=== PATIENT | male | born 1945 | race Caucasian/White ===

== ENCOUNTER 2021-04-23 13:14 | Emergency (ER) | payer MEDICARE, OTHER ==
[~2021-04-23] VITALS: Ht 185.4 cm; Wt 122.7 kg
[2021-04-23 13:16] VITALS: TEMP 98.7
[2021-04-23 14:02] LABS: ALBUMIN 4.3 gm/dL (3.4-4.8); BILIRUBIN,TOTAL 0.8 mg/dL (0.2-1.2); CALCIUM 9.8 mg/dL (8.4-10.2); CREATININE, serum 1.07 mg/dL (0.72-1.25); POTASSIUM 4.2 mmol/L (3.5-4.5); TOTAL PROTEIN 8.1 gm/dL (6.2-8.1)
[2021-04-23 14:57] LABS: BASO # 0.1 K/mm3 (0.0-0.2); BASO % 0.5 % (0.0-2.0); EOS # 0.3 K/mm3 (0.0-0.7); EOS % 2.5 % (0.0-4.0); GRAN # 7.1 K/mm3 (1.4-6.5); GRAN % 68.8 % (42.2-75.2); HEMATOCRIT 46.3 % (42.0-52.0); HEMOGLOBIN 15.4 g/dl (13.5-18.0); LYMPH # 2.2 K/mm3 (1.2-3.4); LYMPH % 21.2 % (20.0-51.0); MEAN CELL VOLUME 88 fl (80.0-100.0); MEAN CORPUSCULAR HEMOGLOBIN 29 pg (27-31); MEAN CORPUSCULAR HGB CONC 33 g/dl (33.0-37.0); MEAN PLATELET VOLUME 10.2 fl (7.4-10.4); MONO # 0.7 K/mm3 (0.1-0.6); MONO % 6.7 % (1.7-9.3); PLATELET COUNT 216 K/mm3 (130-400); RED BLOOD COUNT 5.28 M/mm3 (4.20-5.60); REDCELL DISTRIBUTION WIDTH-CV 13.1 % (11.5-14.5)
[2021-04-23] MEDS ORDERED: PLAVIX 75MG TAB75 MG PO ×2 (15:07)
[2021-04-23 15:11] VITALS: BP 149/89; PULSE 64
== END 2021-04-23 15:33 | disposition home or self-care (01) ==
LOC: COL.ER 13:14
PROVIDERS: Student in an Organized Health Care Education/Training Program
DX: G45.9 Transient cerebral ischemic attack, unspecified (principal); Z87.891 Personal history of nicotine dependence; Z79.82 Long term (current) use of aspirin

== ENCOUNTER 2021-04-26 06:01 | Inpatient (IN) | payer MEDICARE, OTHER ==
[~2021-04-26] VITALS: Ht 185.4 cm; Wt 122.7 kg
[~2021-04-26 06:01] MED LIST: PLAVIX 75MG TAB75 MG PO
[2021-04-26 06:54] LABS: BASO % 0.4 % (0.0-2.0); EOS # 0.3 K/mm3 (0.0-0.7); GRAN # 7.4 K/mm3 (1.4-6.5); HEMATOCRIT 45.8 % (42.0-52.0); HEMOGLOBIN 15.3 g/dl (13.5-18.0); LYMPH # 2.2 K/mm3 (1.2-3.4); MEAN CELL VOLUME 88 fl (80.0-100.0); MEAN CORPUSCULAR HEMOGLOBIN 29 pg (27-31); MEAN CORPUSCULAR HGB CONC 33 g/dl (33.0-37.0); MEAN PLATELET VOLUME 10.7 fl (7.4-10.4); MONO # 0.9 K/mm3 (0.1-0.6); MONO % 8.1 % (1.7-9.3); PLATELET COUNT 209 K/mm3 (130-400); RED BLOOD COUNT 5.22 M/mm3 (4.20-5.60); REDCELL DISTRIBUTION WIDTH-CV 13.1 % (11.5-14.5)
[2021-04-26 06:56] LABS: INR 1.1 (0.8-3.0); PROTHROMBIN TIME 11.9 SECONDS (9.7-12.8)
[2021-04-26 06:58] LABS: PARTIAL THROMBOPLASTIN TIME 37.9 SECONDS (26.0-37.0)
[2021-04-26 07:01] LABS: ALBUMIN 4.1 gm/dL (3.4-4.8); BILIRUBIN,TOTAL 0.9 mg/dL (0.2-1.2); CALCIUM 10.1 mg/dL (8.4-10.2); CREATININE, serum 0.95 mg/dL (0.72-1.25); POTASSIUM 3.4 mmol/L (3.5-4.5); TOTAL PROTEIN 7.5 gm/dL (6.2-8.1)
[2021-04-26 07:07] LABS: TROPONIN-I 0.01 ng/mL (0.00-0.033)
[2021-04-26] MEDS ORDERED: PLENDIL10 MG PO (10:58)
[2021-04-26] MEDS ORDERED: LOPRESSOR 550 MG/TAB PO (11:00)
[2021-04-26] MEDS ORDERED: PRILOSEC 20MG20 MG PO (11:01)
[2021-04-26] MEDS ORDERED: ASPIRIN 81M81 MG/TA2 PO (11:02)
[2021-04-26] MEDS ORDERED: HCTZ 25MG TAB25 MG PO (11:02)
[2021-04-26] MEDS ORDERED: GLUCOPHAGE500 MG/TAB PO (11:04)
[2021-04-26] MEDS ORDERED: ZOCOR 20MG20 MG PO (11:22)
[2021-04-26] MEDS ORDERED: HYTRIN 5MG C5 MG/CAP PO (11:23)
[2021-04-26] MEDS ORDERED: COZAAR100 MG PO (11:24)
[2021-04-26] MEDS ORDERED: NITROSTAT0.4 MG/TAB SL (11:28)
[2021-04-26] MEDS ORDERED: JARDIANCE25 PO (11:29)
[2021-04-26 11:41] VITALS: BP 154/87; PULSE 69; TEMP 97.9
[2021-04-26 16:48] VITALS: BP 161/89; PULSE 77; TEMP 97.9
--- NOTE | 2021-04-26 17:08 | NUR ---
PT PLEASANT, AOX4, R ADMIN DIR STRONG BUT SLIGHTLY WEAKER THAN LEFT. R HAND HAVING SOME ISSUES WITH MOVEMENT BUT BUE EQUAL IN PUSH/PULL STRENGTH. R FOOT FEELS NUMB TO PT BUT CAN FEEL SENSATION DURING ASSESSEMENT, BLE EQUALLY STRONG WITH PUSH/PULL. ASSESSMENT COMPLETED, MED REC COMPLETED, WATER AT BEDSIDE, ORDERED DINNER PER PT REQUEST, NO OTHER NEEDS.
--- NOTE | 2021-04-26 17:15 | NUR ---
NO ADVERSE EVENTS DURING THE SHIFT. PT PLEASANT AND RESTING IN BED. AXOX4. NO PAIN REPORTED. NO CONCERNS AT THIS TIME.
[2021-04-26 20:16] VITALS: BP 157/84; PULSE 78; TEMP 98.3
--- NOTE | 2021-04-26 20:30 | NUR ---
Initial shift assessment done- denies pain, VSS, right hand grasp weaker than left, states right hand feels slightly numb, hard to open and close right hand- right foot very slightly weak but patient able to walk without problems. understands to call for assistance to bathroom
[2021-04-26 23:39] VITALS: BP 150/80; PULSE 65; TEMP 97.6
[2021-04-27] VITALS (9 sets, daily range): BP systolic 145–183; BP diastolic 54–86; PULSE 58–84; TEMP 97.8–98.4
--- NOTE | 2021-04-27 05:36 | NUR ---
Quiet night- no requests, no changes on neuros, Tele on- SR
[2021-04-27 06:32] LABS: BASO # 0.1 K/mm3 (0.0-0.2); BASO % 0.5 % (0.0-2.0); EOS # 0.3 K/mm3 (0.0-0.7); EOS % 3.4 % (0.0-4.0); GRAN % 62.6 % (42.2-75.2); HEMOGLOBIN 13.7 g/dl (13.5-18.0); LYMPH # 2.3 K/mm3 (1.2-3.4); LYMPH % 24.1 % (20.0-51.0); MEAN CELL VOLUME 89 fl (80.0-100.0); MEAN CORPUSCULAR HEMOGLOBIN 29 pg (27-31); MEAN CORPUSCULAR HGB CONC 33 g/dl (33.0-37.0); MEAN PLATELET VOLUME 10.5 fl (7.4-10.4); MONO # 0.9 K/mm3 (0.1-0.6); MONO % 9.1 % (1.7-9.3); PLATELET COUNT 202 K/mm3 (130-400); REDCELL DISTRIBUTION WIDTH-CV 13.3 % (11.5-14.5)
[2021-04-27 06:50] LABS: ALBUMIN 3.4 gm/dL (3.4-4.8); CALCIUM 9.2 mg/dL (8.4-10.2); CHOLESTEROL RISK RATIO 4.6; CREATININE, serum 0.88 mg/dL (0.72-1.25); PHOSPHOROUS 3.6 mg/dL (2.3-4.7); POTASSIUM 3.5 mmol/L (3.5-4.5)
--- NOTE | 2021-04-27 09:39 | NUR ---
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
--- NOTE | 2021-04-27 10:36 | NUR ---
PT. UP AMBULATING HALLS WITH P.T.INDEPENDENTLY. PT. HAS STEADY GAIT. VOICES NO ACUTE CONCERNS
--- NOTE | 2021-04-27 10:40 | NUR ---
PT RESTING IN BED NEURO CHECK COMPLETED, TELEMETRY IS ON. PT IS ABLE TO LIFT AND HOLD EXTREMETIES. INT LEFT HAND INTACT, NO REDNESS/NO EDEMA. DENIES C/O PAIN.
--- NOTE | 2021-04-27 14:52 | NUR ---
health outreach worker met with patient to discuss discharge plan. Patient currently lives at home with his son Wesley ([phone]) and a grandson. 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 Patient is independent with his ADL's and does not utilize any DME to assist with mobility. Patient has no oxygen needs at home. PCP is Dr. Rice and he utilizes [facility] for prison medications and [facility] for short term medications. Patient reports he has a DPOA-HC established and that his son Segun ([phone]) is his agent. Discussed with the patient that PT is recommending the patient go home with outpatient PT. Patient verbalizes that he would therapy established at [facility] Discharge plan: Home with OP PT through [facility]
--- NOTE | 2021-04-27 20:30 | NUR ---
Initial shift assessment done- denies pain/SOB, no changes to neuro,s, states right hand remains slightly numb , good hand grasp but difficulty opening and closing right hand- Up to bathroom, steady on feet. Tele on SR 60,s. SCD,s ordered on patient- pt states he does not want them- refused at this time.
[2021-04-28 03:37] VITALS: BP 150/76; PULSE 64; TEMP 97.8
[2021-04-28 06:45] LABS: BASO # 0.1 K/mm3 (0.0-0.2); BASO % 0.3 % (0.0-2.0); EOS # 0.4 K/mm3 (0.0-0.7); EOS % 2.5 % (0.0-4.0); HEMATOCRIT 43.2 % (42.0-52.0); HEMOGLOBIN 14.2 g/dl (13.5-18.0); LYMPH # 1.8 K/mm3 (1.2-3.4); LYMPH % 12.4 % (20.0-51.0); MEAN CELL VOLUME 89 fl (80.0-100.0); MEAN CORPUSCULAR HEMOGLOBIN 29 pg (27-31); MEAN CORPUSCULAR HGB CONC 33 g/dl (33.0-37.0); MEAN PLATELET VOLUME 10.5 fl (7.4-10.4); MONO # 1.2 K/mm3 (0.1-0.6); MONO % 8.5 % (1.7-9.3); PLATELET COUNT 204 K/mm3 (130-400); RED BLOOD COUNT 4.85 M/mm3 (4.20-5.60); REDCELL DISTRIBUTION WIDTH-CV 13.1 % (11.5-14.5)
--- NOTE | 2021-04-28 06:52 | NUR ---
Quiet night- no changes in neuros, Tele on SR 60,s UP to bathroom, steady on feet, VSS,
[2021-04-28 06:57] LABS: ALBUMIN 3.7 gm/dL (3.4-4.8); CALCIUM 9.3 mg/dL (8.4-10.2); CREATININE, serum 0.97 mg/dL (0.72-1.25); PHOSPHOROUS 3.4 mg/dL (2.3-4.7); POTASSIUM 3.9 mmol/L (3.5-4.5)
[2021-04-28 07:53] VITALS: BP 170/79; PULSE 69; TEMP 98
--- NOTE | 2021-04-28 08:00 | NUR ---
PATIENT IS A&O. VSS ON TELE. B/P WAS INITIALLY ELEVATED THIS AM IN THE 170'S SYSTOLIC BUT AFTER AM B/P MEDS WENT DOWN TO 140'S, PATIENT REPORTS THIS IS NORMAL FOR HIM. NO C/O PAIN, N/V, DIZZINESS OR WEAKNESS. PATIENT ONLY REPORTS STILL HAVIN SOME MILD NUMBNESS IN HIS RIGHT HAND. 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 PT/OT/ST ALL CONSULTED. PATIENT HOPING TO DISCHARGE HOME TODAY. HEAD TO TOE ASSESSMENT COMPLETE. AM MEDS GIVEN. BREAKFAST TRAY AT BEDSIDE. AM BS WAS 141, NO SSI REQUIRED. STUDENT NURSE WORKING WITH PATIENT TODAY, SEE CHARTING. NO OTHER NEEDS AT THIS TIME. CALL LIGHT IN REACH.
[2021-04-28 09:07] VITALS: BP 149/79; PULSE 83
--- NOTE | 2021-04-28 09:43 | NUR ---
Initial visit; Patient thanked Leadite Worker for offering God's blessings and keeping him in Lead[employer] Worker's prayers.
--- NOTE | 2021-04-28 09:52 | NUR ---
Pt. in bed. Assessment completed. Neuro check completed, within normal limits. Both hands equal skein bander and lifts extremities. Telemetry on, HR regular. INT on left hand, no redness. Denies c/o pain. B/P 170/ - primary nurse notified. 0845 - Reassessed B/P - 149 - P -83. Primary nurse updated. Pt resting in bed.
[2021-04-28] MEDS ORDERED: PLAVIX 75MG TAB75 MG PO (10:04)
--- NOTE | 2021-04-28 10:59 | NUR ---
Patient's discharge orders faxed to to [facility] outpatient orders to the E side clinic per patients request. Notified patient that the therapy team will call him to schedule a time.
[2021-04-28 11:28] VITALS: BP 146/67; PULSE 77; TEMP 98.1
--- NOTE | 2021-04-28 13:50 | NUR ---
PATIENT DISCHARGING HOME. GAVE DISCHARGE INSTRUCTIONS AND DISCUSSED ALL OF HIS F/U APTS INCLUDING THE SLEEP STUDY. ANSWERED QUESTIONS/CONCERNS. DC'D TELE. DC'D LEFT WRIST IV AND COVERED SITE WITH [employer]. PATIENT CALLED SON AND IS GETTING DRESSED. PATIENT WILL CALL WHEN HIS SON IS HERE TO GET HIM.
--- NOTE | 2021-04-28 14:40 | NUR ---
PATIENT'S SON IS HERE IN THE ER. PATIENT DRESSED, PACKED AND ESCORTED OUT VIA WC TO PERSONAL VEHICLE WHERE SON IS WAITING.
== END 2021-04-28 14:40 | disposition home or self-care (01) | DRG 66 ==
LOC: COL.ER 06:01 → MEDICAL 08:58
PROVIDERS: Emergency Medicine; ADMIT Internal Medicine
DX: I63.132 Cerebral infarction due to embolism of left carotid artery (principal); E11.9 Type 2 diabetes mellitus without complications; I10 Essential (primary) hypertension; E78.00 Pure hypercholesterolemia, unspecified; K21.9 Gastro-esophageal reflux disease without esophagitis; M48.02 Spinal stenosis, cervical region; I25.10 Atherosclerotic heart disease of native coronary artery without angina pectoris; E87.6 Hypokalemia; I25.2 Old myocardial infarction; Z95.5 Presence of coronary angioplasty implant and graft; Z85.46 Personal history of malignant neoplasm of prostate; Z87.891 Personal history of nicotine dependence; Z23 Encounter for immunization; Z79.82 Long term (current) use of aspirin
CPT/HCPCS: 99223-AI; 99232-AI; 99239; A9575; J1815; Q9967

== ENCOUNTER → 2021-05-27 | Outpatient (RCR) | payer MEDICARE, OTHER ==
[~2021-05-27] MED LIST changes: +ASPIRIN 81M81 MG/TA2 PO; +COZAAR100 MG PO; +GLUCOPHAGE500 MG/TAB PO; +HCTZ 25MG TAB25 MG PO; +HYTRIN 5MG C5 MG/CAP PO; +JARDIANCE25 PO; +LOPRESSOR 550 MG/TAB PO; +NITROSTAT0.4 MG/TAB SL; +PLENDIL10 MG PO; +PRILOSEC 20MG20 MG PO; +ZOCOR 20MG20 MG PO
== END | disposition home or self-care (01) ==
LOC: MKS.ESL.OT
DX: I69.351 Hemiplegia and hemiparesis following cerebral infarction affecting right dominant side (principal)

== ENCOUNTER 2021-06-11 13:00 | Outpatient (RCR) | payer MEDICARE, OTHER | END 2021-06-26 | disposition home or self-care (01) | LOC: MKS.ESL.OT | DX: I69.351 Hemiplegia and hemiparesis following cerebral infarction affecting right dominant side (principal) ==

== ENCOUNTER 2022-02-25 09:31 | Day surgery (SDC) | payer MEDICARE, OTHER ==
[~2022-02-25] VITALS: Ht 182.9 cm; Wt 110.9 kg
[~2022-02-25 09:31] MED LIST changes: +LASIX 40MG TABL40 MG PO; +NORCO 325 MG-51 TAB PO; +PROSCAR 5MG5 MG PO; +TRULICITY0.75 MG/0. SQ
[2022-02-25 10:31] VITALS: BP 126/81; PULSE 84; TEMP 97
--- NOTE | 2022-02-25 11:18 | NUR ---
1000 - Medications, HX and allergies reviewed w/ PT. PT states taking Plavix, Metoprolol and Metforming T at 0700: this was reported to SANTIAG[facility] Jolly and , no new orders recieved.
--- NOTE | 2022-02-25 12:25 | NUR ---
1132 RECEIVED POST PROCEDURE REPORT FROM NELY Keyes. PT ALERT AND ORIENTED, FOLLOWING COMMANDS, ABLE TO AMBULATE FROM CART TO RECLINER. BREATHING EVEN AND UNLABORED. 1140 MUFFIN AND JUICE PROVIDED TO PT 1200 CALLED PT'S SON, ANTOINE TO COME AND GET PT. 1203 IV DISCINTINUED AND REMOVED. DISCHARGE INSTRUCTIONS REVIEWED W/ PT AND SIGNED BY PT. PT AMBULATORY TO RESTROOM TO EMPTY HIS [place] LEG BAG. GAIT STEADY. 1215 PT TO LOBBY VIA WHEEL CHAIR FOR RIDE HOME W/ SON, ANTOINE IN POV.
[2022-02-25 13:13] VITALS: BP 103/66; PULSE 91
[2022-03-04] MEDS ORDERED: CEPHALEXIN500 M1 PO ×3 (12:43→13:32)
[2022-05-23] MEDS ORDERED: XARELTO20 MG PO ×2 (15:05)
[2022-05-23] MEDS ORDERED: CEPHALEXIN500 M1 PO (15:05)
== END 2022-02-25 13:54 | disposition home or self-care (01) ==
LOC: SDCO 09:31
DX: K21.00 Gastro-esophageal reflux disease with esophagitis, without bleeding (principal); K29.30 Chronic superficial gastritis without bleeding
CPT/HCPCS: J2704; J7120

== ENCOUNTER 2022-05-23 22:32 | Inpatient (IN) | payer MEDICARE, OTHER ==
[~2022-05-23] VITALS: Ht 182.9 cm; Wt 113.3 kg
[~2022-05-23 22:32] MED LIST changes: +CEPHALEXIN500 M1 PO; +XARELTO20 MG PO
[2022-05-23 22:57] LABS: BASO % 0.2 % (0.0-2.0); EOS % 0.1 % (0.0-4.0); GRAN # 7.5 K/mm3 (1.4-6.5); GRAN % 81.8 % (42.2-75.2); HEMATOCRIT 41.2 % (42.0-52.0); LYMPH # 0.7 K/mm3 (1.2-3.4); LYMPH % 7.1 % (20.0-51.0); MEAN CELL VOLUME 89 fl (80.0-100.0); MEAN CORPUSCULAR HEMOGLOBIN 28 pg (27-31); MEAN CORPUSCULAR HGB CONC 32 g/dl (33.0-37.0); MEAN PLATELET VOLUME 10.5 fl (7.4-10.4); MONO % 10.6 % (1.7-9.3); PLATELET COUNT 167 K/mm3 (130-400); RED BLOOD COUNT 4.63 M/mm3 (4.20-5.60); REDCELL DISTRIBUTION WIDTH-CV 14.6 % (11.5-14.5)
[2022-05-23 23:08] LABS: ALBUMIN 3.2 gm/dL (3.4-4.8); BILIRUBIN,TOTAL 1.4 mg/dL (0.2-1.2); C-REACTIVE PROTEIN 8.32 mg/dL (0.00-0.50); CALCIUM 8.9 mg/dL (8.4-10.2); CREATININE, serum 0.95 mg/dL (0.72-1.25); POTASSIUM 3.7 mmol/L (3.5-4.5); TOTAL PROTEIN 6.4 gm/dL (6.2-8.1)
[2022-05-23 23:16] LABS: TROPONIN-I 0.043 ng/mL (0.00-0.033)
[2022-05-24 03:30] VITALS: BP 154/62; PULSE 92; TEMP 100
[2022-05-24 05:00] LABS: BASO % 0.2 % (0.0-2.0); GRAN # 6.5 K/mm3 (1.4-6.5); GRAN % 78.1 % (42.2-75.2); HEMOGLOBIN 12.1 g/dl (13.5-18.0); LYMPH # 0.8 K/mm3 (1.2-3.4); LYMPH % 9.4 % (20.0-51.0); MEAN CELL VOLUME 87 fl (80.0-100.0); MEAN CORPUSCULAR HEMOGLOBIN 29 pg (27-31); MEAN CORPUSCULAR HGB CONC 33 g/dl (33.0-37.0); MEAN PLATELET VOLUME 10.6 fl (7.4-10.4); MONO % 12.1 % (1.7-9.3); PLATELET COUNT 155 K/mm3 (130-400); RED BLOOD COUNT 4.21 M/mm3 (4.20-5.60); REDCELL DISTRIBUTION WIDTH-CV 14.6 % (11.5-14.5)
[2022-05-24 05:01] LABS: HEMATOCRIT 36.4 % (42.0-52.0)
[2022-05-24 05:14] LABS: CALCIUM 8.3 mg/dL (8.4-10.2); CREATININE, serum 0.79 mg/dL (0.72-1.25); POTASSIUM 3.4 mmol/L (3.5-4.5)
[2022-05-24 05:23] LABS: TROPONIN-I 6 HR POST INITIAL 0.044 ng/mL (0.00-0.033)
[2022-05-24 08:00] VITALS: BP 167/82; PULSE 86; TEMP 99.8
--- NOTE | 2022-05-24 08:58 | NUR ---
The patient is positive for COVID. JACINTO contacted the patient's son, Segun Long (ph#[phone]), to discuss discharge plan. The patient lives in [place] with his other son, Wesley (ph#[phone]). Segun reports that the patient is independent with ADLs and does not have any DME. The patient's PCP is Dr. Felix Rice. Segun [facility] The patient does not have a DPOA-HC in EMR. Segun reports that he believes the patient has one completed and that it designates him. He states that the patient is and has seven children: himself, Wesley, Sahsha, Shahana, Deni, Brittney, and Carley. JACINTO attempted to contact Dr. Rice's clinic to inquire if they have a DPOA-HC on file. The photo mask cleaner reports that they do not have one on file. Segun reports that the plan is for the patient to return back home with his brother upon discharge. PT/OT have been ordered. *Discharge plan: Tentatively home with son. PT/OT have been ordered*
--- NOTE | 2022-05-24 09:11 | NUR ---
Patient is resting in bed, states he feels really tiered since he did not sleep at night. Alert and oriented x 4, denies any pain or SOB at this time. VSS but HTN. Assessment completed, no further needs at this time. Call light withinr reach.
--- NOTE | 2022-05-24 09:30 | NUR ---
Call placed to Dr Walls for consult. Phone not answered. Message left in voicemail.
[2022-05-24 11:11] VITALS: BP 155/76; PULSE 82; TEMP 100
[2022-05-24] MEDS ORDERED: ELIQUIS 5MG PO (14:05)
[2022-05-24] MEDS ORDERED: ASPIRIN 81M81 MG/TA2 PO (14:27)
[2022-05-24] MEDS ORDERED: CELEBREX 200MG200 MG PO (14:29)
[2022-05-24] MEDS ORDERED: PLENDIL10 MG PO (14:30)
[2022-05-24] MEDS ORDERED: HCTZ 25MG TAB25 MG PO (14:32)
[2022-05-24] MEDS ORDERED: PROTONIX 40MG T40 MG PO (14:34)
[2022-05-24 16:00] VITALS: BP 150/77; BP 152/78; BP 153/95; PULSE 90; TEMP 98
[2022-05-24 18:26] VITALS: BP 167/82; PULSE 86
[2022-05-24 19:06] LABS: COLLECTION METHOD IN
[2022-05-24 19:23] LABS: SQUAMOUS EPITHELIAL None Seen /hpf (0-10); URINE BACTERIA None Seen /hpf (NONE SEEN); URINE RBC 20-50 /hpf (0-2)
[2022-05-24 19:25] LABS: PH 5.5 (5-8); URINE APPEARANCE Cloudy (CLEAR/HAZY); URINE COLOR Yellow (YELLOW)
[2022-05-24 19:26] LABS: URINE BLOOD 2+ (NEGATIVE); URINE GLUCOSE 2+ (NEGATIVE); URINE KETONE Negative (NEGATIVE); URINE NITRATE Negative (NEGATIVE); URINE PROTEIN(semi-quant) 1+ (NEGATIVE)
[2022-05-24 19:38] VITALS: BP 173/79; PULSE 69; TEMP 99.1
[2022-05-25] VITALS (7 sets, daily range): BP systolic 119–187; BP diastolic 62–94; PULSE 79–95; TEMP 97.9–100.5
[2022-05-25 06:57] LABS: HEMATOCRIT 39.8 % (42.0-52.0); HEMOGLOBIN 13.4 g/dl (13.5-18.0); MEAN CELL VOLUME 84 fl (80.0-100.0); MEAN CORPUSCULAR HEMOGLOBIN 28 pg (27-31); MEAN CORPUSCULAR HGB CONC 34 g/dl (33.0-37.0); MEAN PLATELET VOLUME 10.6 fl (7.4-10.4); PLATELET COUNT 165 K/mm3 (130-400); RED BLOOD COUNT 4.74 M/mm3 (4.20-5.60); REDCELL DISTRIBUTION WIDTH-CV 14.3 % (11.5-14.5)
[2022-05-25 07:21] LABS: ALBUMIN 2.9 gm/dL (3.4-4.8); CALCIUM 8.5 mg/dL (8.4-10.2); CREATININE, serum 0.78 mg/dL (0.72-1.25); POTASSIUM 3.1 mmol/L (3.5-4.5)
[2022-05-25 07:58] LABS: BAND 12 % (0-10); EOSINOPHIL 1 % (0-4); LYMPHOCYTE 19 % (20.0-51.0); NEUTROPHILS 45 % (42.0-75.2); PLATELET ESTIMATE NORMAL (NORMAL)
--- NOTE | 2022-05-25 10:40 | NUR ---
Assessment complete. A/O x4. Complains of gum pain due to poorly fitting dentures. Also reports difficulty swallowing but states it is a chronic issue. Pt holding urinal under penis at all times- external catheter no longer in place. Replaced external catheter. Initiated 3 step moisture barrier. Scrotum red. Coccyx red but blanchable. Will implement 2 hour turn schedule and get specialty bed. Dr. Monge made rounds while this nurse in pt room and ordered S.T. consult and [place] for c/o pain.
--- NOTE | 2022-05-25 11:40 | NUR ---
Pt's blood pressure's have trended up since yesterday. Apres[place] adminsitered IV for SBP >170. Dr. Monge notified- new orders rec'd.
--- NOTE | 2022-05-25 12:36 | NUR ---
[place] administered at 1112 for c/o "gum" pain- rating pain 5/10. Pt now rates pain 0/10. Pt sitting up in chair. External catheter came off again. Pt placed in a brief and given a urinal. Will not attempt to reappy external cath at this time.
--- NOTE | 2022-05-25 16:17 | NUR ---
[place] administered po for c/o "gum" pain. Rates pain as "aching" and 5/10 on pain scale.
--- NOTE | 2022-05-25 18:24 | NUR ---
Pt used urinal throughout day with some incontinence as well. Incontinent cares provided as needed. Pt repositioned q 2 hours while in bed. Very EAGLE- uses bilateral hearing aides. Denies gum pain since receiving [place]. Speech Therapy completed consult for swallowing difficulties. Tolerating po antibiotics.
[2022-05-26 00:15] VITALS: BP 149/84; PULSE 88; TEMP 98.2
[2022-05-26 04:45] VITALS: BP 153/80; PULSE 97; TEMP 98
[2022-05-26 07:05] LABS: BASO % 0.3 % (0.0-2.0); EOS # 0.2 K/mm3 (0.0-0.7); EOS % 3.3 % (0.0-4.0); GRAN # 3.2 K/mm3 (1.4-6.5); HEMATOCRIT 41.9 % (42.0-52.0); HEMOGLOBIN 14.4 g/dl (13.5-18.0); LYMPH # 1.8 K/mm3 (1.2-3.4); LYMPH % 29.2 % (20.0-51.0); MEAN CELL VOLUME 83 fl (80.0-100.0); MEAN CORPUSCULAR HEMOGLOBIN 29 pg (27-31); MEAN CORPUSCULAR HGB CONC 34 g/dl (33.0-37.0); MEAN PLATELET VOLUME 10.5 fl (7.4-10.4); MONO # 0.9 K/mm3 (0.1-0.6); MONO % 14.7 % (1.7-9.3); PLATELET COUNT 178 K/mm3 (130-400); RED BLOOD COUNT 5.06 M/mm3 (4.20-5.60); REDCELL DISTRIBUTION WIDTH-CV 14.3 % (11.5-14.5)
[2022-05-26 07:08] VITALS: BP 175/88; PULSE 93; TEMP 97.9
[2022-05-26 07:16] LABS: CALCIUM 8.6 mg/dL (8.4-10.2); CREATININE, serum 0.8 mg/dL (0.72-1.25); MAGNESIUM 1.9 mg/dL (1.6-2.6); PHOSPHOROUS 3.7 mg/dL (2.3-4.7); POTASSIUM 3.2 mmol/L (3.5-4.5)
--- NOTE | 2022-05-26 10:17 | NUR ---
Assessment complete. A/O x4. Reports gums are "blah" but denies pain. On RA. Denies SOA. Coccyx red. Pt repositioned from supine position to left side. Uses urinal but sometime incontinent. 3 step moisture barrier applied and brief dry at this time.
[2022-05-26] MEDS ORDERED: PRILOSEC 20MG20 MG PO (10:46)
--- NOTE | 2022-05-26 11:05 | NUR ---
Called [facility] pharmacy for list of meds that pt had recently filled. Called Dr. Rice's nurse to confirm those meds. Med Rec updated and Dr. Monge notified.
[2022-05-26 11:12] VITALS: BP 122/71; PULSE 65; TEMP 98.1
--- NOTE | 2022-05-26 11:33 | NUR ---
Spoke with Jessica in [place] to confirm that Echo would be completed today- she states she is aware and will get to it as soon she can.
[2022-05-26] MEDS ORDERED: CLEOCIN HCL300 MG PO (12:05)
[2022-05-26] MEDS ORDERED: NORVASC 10MG10 MG PO (12:05)
[2022-05-26] MEDS ORDERED: LIPITOR 40MG TA40 MG PO (12:08)
--- NOTE | 2022-05-26 12:39 | NUR ---
Echocardiogram completed at bedside.
--- NOTE | 2022-05-26 14:31 | NUR ---
Discharge orders rec'd. Echo completed. S.T. completed evaluation- will include with discahrge packet. Tele d/c'd. INT to RAC d/c'd with cath tip intact. O.T. dressed patient.
--- NOTE | 2022-05-26 15:04 | NUR ---
Pt escorted to private vehicle via w/c and discharged home with son.
== END 2022-05-26 15:04 | disposition home or self-care (01) | DRG 178 ==
LOC: COL.ER 22:32 → MEDICAL 05-24 00:12
PROVIDERS: Emergency Medicine; Internal Medicine; Student in an Organized Health Care Education/Training Program; ADMIT Internal Medicine
PROC: XW033E5 Introduction of Remdesivir Anti-infective into Peripheral Vein, Percutaneous Approach, New Technology Group 5 (ICD-10-PCS; principal; 2022-05-24)
DX: U07.1 COVID-19 (principal); N39.0 Urinary tract infection, site not specified; K21.9 Gastro-esophageal reflux disease without esophagitis; I25.10 Atherosclerotic heart disease of native coronary artery without angina pectoris; I48.91 Unspecified atrial fibrillation; I10 Essential (primary) hypertension; E11.9 Type 2 diabetes mellitus without complications; I65.29 Occlusion and stenosis of unspecified carotid artery; R74.8 Abnormal levels of other serum enzymes; B96.20 Unspecified Escherichia coli [E. coli] as the cause of diseases classified elsewhere; Z86.73 Personal history of transient ischemic attack (TIA), and cerebral infarction without residual deficits; Z95.5 Presence of coronary angioplasty implant and graft; Z79.84 Long term (current) use of oral hypoglycemic drugs; Z79.02 Long term (current) use of antithrombotics/antiplatelets; Z85.46 Personal history of malignant neoplasm of prostate; Z23 Encounter for immunization
CPT/HCPCS: A9270; J0248; J0360; J0696; J1650; J1815; J7030; J7050

== ENCOUNTER 2022-05-27 11:18 | Emergency (ER) | payer MEDICARE, OTHER ==
[~2022-05-27] VITALS: Ht 182.9 cm; Wt 112.7 kg
[~2022-05-27 11:18] MED LIST changes: +CELEBREX 200MG200 MG PO; +CLEOCIN HCL300 MG PO; +ELIQUIS 5MG PO; +LIPITOR 40MG TA40 MG PO; +NORVASC 10MG10 MG PO; +PROTONIX 40MG T40 MG PO
[2022-05-27 11:25] VITALS: TEMP 97.6
[2022-05-27 13:15] LABS: BASO % 0.3 % (0.0-2.0); EOS # 0.1 K/mm3 (0.0-0.7); EOS % 1.9 % (0.0-4.0); GRAN % 58.9 % (42.2-75.2); HEMOGLOBIN 14.9 g/dl (13.5-18.0); LYMPH # 1.7 K/mm3 (1.2-3.4); LYMPH % 25.4 % (20.0-51.0); MEAN CELL VOLUME 86 fl (80.0-100.0); MEAN CORPUSCULAR HEMOGLOBIN 27 pg (27-31); MEAN CORPUSCULAR HGB CONC 32 g/dl (33.0-37.0); MEAN PLATELET VOLUME 10.5 fl (7.4-10.4); MONO # 0.9 K/mm3 (0.1-0.6); MONO % 13.2 % (1.7-9.3); PLATELET COUNT 239 K/mm3 (130-400); RED BLOOD COUNT 5.45 M/mm3 (4.20-5.60); REDCELL DISTRIBUTION WIDTH-CV 14.3 % (11.5-14.5)
[2022-05-27 13:25] LABS: ALBUMIN 3.4 gm/dL (3.4-4.8); BILIRUBIN,TOTAL 1.1 mg/dL (0.2-1.2); CREATININE, serum 1.14 mg/dL (0.72-1.25); POTASSIUM 3.3 mmol/L (3.5-4.5); TOTAL PROTEIN 7.1 gm/dL (6.2-8.1)
[2022-05-27 13:31] LABS: TROPONIN-I 0.015 ng/mL (0.00-0.033)
[2022-05-27 15:47] VITALS: BP 158/93; PULSE 78
== END 2022-05-27 15:44 | disposition home or self-care (01) ==
LOC: COL.ER 11:18
PROVIDERS: Emergency Medicine
DX: U07.1 COVID-19 (principal); R53.1 Weakness; R51.9 Headache, unspecified; R06.02 Shortness of breath; R07.89 Other chest pain; I48.91 Unspecified atrial fibrillation; Z73.0 Burn-out; Z86.73 Personal history of transient ischemic attack (TIA), and cerebral infarction without residual deficits; Z79.01 Long term (current) use of anticoagulants; Z79.02 Long term (current) use of antithrombotics/antiplatelets
CPT/HCPCS: J7120

== ENCOUNTER 2022-06-21 11:41 | Inpatient (IN) | payer MEDICARE, OTHER ==
[~2022-06-21] VITALS: Ht 182.9 cm; Wt 110.0 kg
[2022-06-22] VITALS (8 sets, daily range): BP systolic 98–142; BP diastolic 61–83; PULSE 57–94; TEMP 97.7–98.8
--- NOTE | 2022-06-22 09:50 | NUR ---
Pt is sitting on the side of bed upon this nurse's entry. Pt is a direct admit from for sobetalol obs. A&Ox4. No distress noted. Admission intake and physical exam completed. Medications reconciled to the best of pt's ability. Pt reports he does have an advanced directive @ home w/ POA and DNR. Pt reports that his son may be able to bring this in. Pt is hard of hearing w/ bilateral hearing [facility]. Respirations are even and unlabored. Pt denies pain, SOA, lightheadedness, or dizziness. Skin is warm and dry. Pt does have to skin variances on right foot. One small dark purple eschar to right greater toe [id number] and one small ulceration to right second toe 0.5cmx0.5cm in size. Pt reports at home he does not wear shoes and "bangs up" his feet "a lot". Pt encouraged to wear protective footwear. Non-slip socks applied to bilateral feet. Pt oriented to room. No complaints or concerns. Call light in reach.
[2022-06-22 09:56] LABS: BASO % 0.3 % (0.0-2.0); EOS # 0.2 K/mm3 (0.0-0.7); EOS % 2.4 % (0.0-4.0); GRAN # 6.7 K/mm3 (1.4-6.5); GRAN % 69.3 % (42.2-75.2); HEMATOCRIT 45.8 % (42.0-52.0); HEMOGLOBIN 15.5 g/dl (13.5-18.0); LYMPH # 1.9 K/mm3 (1.2-3.4); MEAN CELL VOLUME 85 fl (80.0-100.0); MEAN CORPUSCULAR HEMOGLOBIN 29 pg (27-31); MEAN CORPUSCULAR HGB CONC 34 g/dl (33.0-37.0); MEAN PLATELET VOLUME 10.2 fl (7.4-10.4); MONO # 0.7 K/mm3 (0.1-0.6); MONO % 7.7 % (1.7-9.3); PLATELET COUNT 199 K/mm3 (130-400); REDCELL DISTRIBUTION WIDTH-CV 15.1 % (11.5-14.5)
[2022-06-22 10:12] LABS: ALBUMIN 3.8 gm/dL (3.4-4.8); CALCIUM 9.8 mg/dL (8.4-10.2); CREATININE, serum 1.15 mg/dL (0.72-1.25); MAGNESIUM 1.6 mg/dL (1.6-2.6); POTASSIUM 3.9 mmol/L (3.5-4.5); TOTAL PROTEIN 7.1 gm/dL (6.2-8.1)
--- NOTE | 2022-06-22 11:00 | NUR ---
PATIENT AWAKE AND ALERT, RESTING IN BED. PATIENT DENIES ANY NEEDS OR COMPLAINTS AT THIS TIME. BOLUS FOR LOW BP INITIATED.
--- NOTE | 2022-06-22 16:40 | NUR ---
This nurse attempted to page NELY Tanner w/ regarding pt code status @ 5311. Pt reports DNR status upon admission. Awaiting response.
--- NOTE | 2022-06-22 17:17 | NUR ---
OVERSEEN DISC INSPECTOR COMPLETE PATIENT CARE AND MEDICATION ADMINISTRATION.
--- NOTE | 2022-06-22 21:21 | NUR ---
Assessment complete. A&Ox3. Denies pain/nausea/shortness of breath. VS stable. INT to left wrist flushes without difficulty. TELE reporting irregular-A flutter. Plan of care discussed for this shift to inculde initiation of sotalol and EKG in AM. Verbalizes understanding/denies questions/concerns. Call light in reach. Will monitor.
[2022-06-23] VITALS (9 sets, daily range): BP systolic 108–137; BP diastolic 63–85; PULSE 55–87; TEMP 98–98.9
--- NOTE | 2022-06-23 05:11 | NUR ---
Patient had an uneventful night. TELE reporting patient still in A FIB. VS remain stable. INT to left wrist flushes without difficulty. Denies current needs. Call light in reach. Will monitor.
[2022-06-23 06:51] LABS: BASO % 0.3 % (0.0-2.0); EOS # 0.3 K/mm3 (0.0-0.7); EOS % 3.7 % (0.0-4.0); GRAN # 5.1 K/mm3 (1.4-6.5); GRAN % 58.8 % (42.2-75.2); HEMATOCRIT 44.9 % (42.0-52.0); LYMPH # 2.6 K/mm3 (1.2-3.4); LYMPH % 29.9 % (20.0-51.0); MEAN CELL VOLUME 85 fl (80.0-100.0); MEAN CORPUSCULAR HEMOGLOBIN 28 pg (27-31); MEAN CORPUSCULAR HGB CONC 33 g/dl (33.0-37.0); MONO # 0.6 K/mm3 (0.1-0.6); MONO % 7.2 % (1.7-9.3); PLATELET COUNT 161 K/mm3 (130-400); RED BLOOD COUNT 5.28 M/mm3 (4.20-5.60)
[2022-06-23 07:13] LABS: CALCIUM 9.4 mg/dL (8.4-10.2); CREATININE, serum 0.92 mg/dL (0.72-1.25); MAGNESIUM 1.7 mg/dL (1.6-2.6); POTASSIUM 4.3 mmol/L (3.5-4.5)
--- NOTE | 2022-06-23 08:54 | NUR ---
SW met with the patient to discuss discharge plan. The patient was admitted for sotalol initiation. The patient lives in [place] with his son, Wesley (ph#[phone]). He reports independence with ADLs and does not have any DME. The patient's PCP is Dr. Felix Rice and he obtains his [facility]. The patient does not have a DPOA-HC in EMR, but he states that he does have one completed and that he designated his sons: Wesley and Segun (ph#[phone]). The patient states that he has seven children: Segun Olson, Shahana, Liv, Carley, Brittney, and his other son he has "disowned." The patient plans to return home with his son upon discharge. No additional needs at this time. *Discharge plan: home with son*
--- NOTE | 2022-06-23 11:15 | NUR ---
Initial visit: [employer] stopped by room on rounds. Pt was resting and content. Pt has no needs right now. Pt appreciated the visit. [employer] will follow up as needed.
--- NOTE | 2022-06-23 11:45 | NUR ---
ELECTIVE CARDIOVERSION CONSENT SIGNED AND ON PATIENT CHART.
--- NOTE | 2022-06-23 17:59 | NUR ---
PATIENT AWAKE AND ALERT, RESTING IN BED. RN CALLED IN DINNER AND BREAKFAST ORDER. PATIENT DENIES ANY NEEDS OR COMPLAINTS AT THIS. CALL LIGHT WTIHIN REACH
[2022-06-24] VITALS (12 sets, daily range): BP systolic 112–146; BP diastolic 67–97; PULSE 53–84; TEMP 97.9–98.2
[2022-06-24 07:23] LABS: BASO % 0.4 % (0.0-2.0); EOS # 0.3 K/mm3 (0.0-0.7); EOS % 4.3 % (0.0-4.0); GRAN # 4.3 K/mm3 (1.4-6.5); GRAN % 57.8 % (42.2-75.2); HEMOGLOBIN 13.8 g/dl (13.5-18.0); LYMPH # 2.2 K/mm3 (1.2-3.4); LYMPH % 28.9 % (20.0-51.0); MEAN CELL VOLUME 86 fl (80.0-100.0); MEAN CORPUSCULAR HEMOGLOBIN 28 pg (27-31); MEAN CORPUSCULAR HGB CONC 33 g/dl (33.0-37.0); MEAN PLATELET VOLUME 10.9 fl (7.4-10.4); MONO # 0.6 K/mm3 (0.1-0.6); MONO % 8.3 % (1.7-9.3); PLATELET COUNT 157 K/mm3 (130-400)
[2022-06-24 07:42] LABS: CALCIUM 8.8 mg/dL (8.4-10.2); CREATININE, serum 0.83 mg/dL (0.72-1.25); MAGNESIUM 1.7 mg/dL (1.6-2.6); POTASSIUM 3.7 mmol/L (3.5-4.5)
--- NOTE | 2022-06-24 09:15 | NUR ---
Pt is sitting up in bed w/ cardiac cath technician RN present @ bedside assisting w/ preparation for cardioversion @ this time. Pt is A&Ox4. Pleasant and sociable demeanor. AM medications administered w/o difficulty PO. This nurse was instructed by Tiffanie Che RN via telephone @ 0830 to hold Lasix d/t cardioversion. Pt notified of this and is agreeable. Consent for anesthesia signed as well. Shift assessment completed. Pt denies any lightheadedness, dizziness, chest pain, or SOA. No complaints or concerns voiced. Call light in reach.
--- NOTE | 2022-06-24 11:10 | NUR ---
Pt sitting up in bed watching tv upon this nurse's entrance. A&Ox4. Pt inquires if after his cardioversion he will be returning to his room, this nurse assures pt that if procedure has no adverse effects, he will return to his room. Pt has no other complaints or concers. Pt transported to qc lab technician w/ Veena Tadeo RN.
[2022-06-24] MEDS ORDERED: BETAPACE 80MG80 MG PO (12:47)
--- NOTE | 2022-06-24 15:56 | NUR ---
Pt sitting up in bed upon this nurse's entry. A&Ox4. Pt informed of discharge. Pt reports that son, Wesley, will need called to take him home. This nurse contacted pt son Wesley @ [phone] per pt. Pt son reports he will be @ hospital to orange picker machine operator pt @ 1600. Pt informed of this. Discharge education/instructions given to pt. Pt has no current questions or concerns. PIV and telemetry removed. Pt denies any chest pain, SOA, or lightheadedness/dizziness. Pt escorted to POV via WC by staff.
== END 2022-06-24 15:58 | disposition home or self-care (01) | DRG 310 ==
LOC: MEDICAL 06-22 08:12
PROVIDERS: Internal Medicine Cardiovascular Disease; ADMIT Internal Medicine Cardiovascular Disease
PROC: 5A2204Z Restoration of Cardiac Rhythm, Single (ICD-10-PCS; principal; 2022-06-24)
DX: I48.0 Paroxysmal atrial fibrillation (principal); Z23 Encounter for immunization
CPT/HCPCS: A9270; J2704; J7040; J7120